=== PATIENT | male | born 1960 | race Caucasian/White ===

== ENCOUNTER 2018-09-25 14:14 | Inpatient (IN) ==
--- NOTE | 2018-09-25 14:46 | XR ---
EXAM DATE: 09/25/2018 2:37 PM EST AGE/SEX: 54 years / Male INDICATIONS: . Shortness of breath. CLINICAL DATA: This is the patient's initial encounter. Patient reports that signs and symptoms have been present for 3 months and indicates a pain score of 0/10. MEDICAL/SURGICAL HISTORY: Chronic obstructive pulmonary disease. None. COMPARISON: No prior exams available for comparison. FINDINGS: AP and lateral views of the chest demonstrate the lungs to be symmetrically aerated without evidence of mass, infiltrate infiltrate or effusion. There is mild streaky interstitial opacities. The cardiom ediastinal contours are unremarkable. Osseous structures are intact. CONCLUSION: 1. No acute cardiopulmonary disease. 2. Mild streaky interstitial opacities which may represent chronic scarring. Electronically signed by: Abad Garcia MD Board Certified Radiologist 09/25/2018 2:45 PM EST
[2018-09-25] MEDS ORDERED: MethylPREDNISolone Sod Succinate Inj 125 MG/2 ML Vial IV.PUSH ONE (14:58)
[2018-09-25 15:31] LABS: Baso # (Auto) 0.1 th/mm3 (0.0-0.2); Baso % (Auto) 0.7 % (0.0-2.0); Eos # (Auto) 1.3 th/mm3 (0.0-0.4); Eos % (Auto) 14.9 % (0.0-4.0); Hematocrit 36.6 % (39.0-51.0); Hemoglobin 12.5 gm/dL (13.0-17.0); Lymph # (Auto) 1.2 th/mm3 (1.0-4.8); Lymph % (Auto) 13.6 % (9.0-44.0); Mean Corpuscular Hemoglobin 30.1 pg (27.0-34.0); Mean Corpuscular Volume 88.7 fL (80.0-100.0); Mean Platelet Volume 7.1 fL (7.0-11.0); Mono # (Auto) 0.7 th/mm3 (0.0-0.9); Mono % (Auto) 8.4 % (0.0-8.0); Neut # (Auto) 5.4 th/mm3 (1.8-7.7); Neut % (Auto) 62.4 % (16.0-70.0); Platelet Count 333 th/mm3 (150-450); Red Blood Count 4.13 mil/mm3 (4.50-5.90); Red Cell Distribution Width 13.4 % (11.6-17.2); White Blood Count 8.6 th/mm3 (4.0-11.0)
[2018-09-25 15:32] LABS: Activated Partial Thrombo Time 37.2 sec (23.4-31.7); Prothrombin Time 10.4 sec (9.8-11.6)
[2018-09-25 15:37] LABS: D-Dimer 0.6 mg/L FEU (0.00-0.50)
--- NOTE | 2018-09-25 15:39 | ED ---
HPI General Chief Complaint: Respiratory Symptoms Stated Complaint: Respiratory Time Seen by Provider: 09/25/18 14:48 Source: patient Mode of arrival: ambulatory Limitations: no limitations History of Present Illness The patient is a 54-year-old male who presents to the emergency department for shortness of breath. The patient has a history of COPD and was being treated by his physician in [place], [place]. The patient states that he was admitted to the hospital in June for pneumonia, shortness of breath, bacteria in the blood, and hypoxia. The patient states he was treated with antibiotics, steroids, breathing treatments, and his symptoms significantly improved. However, the patient's symptoms returned and he was seen by his primary physician who treated him with Tamiflu. The patient states his symptoms once again improved, however, have been progressing over the last month. 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 The patient notes increasing shortness of breath since Saturday with a mostly dry nonproductive cough. The patient has been using his inhalers as directed, denies any known history of pulmonary embolism, DVT, or congestive heart failure. The patient does have a history of COPD and hyperlipidemia. The patient quit smoking 3 months ago. Symptoms are moderate to severe and progressive. The patient is not on home O2. MD Complaint: Reports shortness of breath Onset (ago): day(s) Context: Reports recent illness Severity: severe Consistency/Duration: constant Relieving factors: nothing Exacerbating factors: exertion, coughing and talking Known history of: Reports COPD Associated symptoms: Reports cough Treatment prior to arrival: Reports bronchodilator Related Data Home oxygen amount: none Home Medications Medication Instructions Recorded Confirmed albuterol sulfate [Ventolin HFA] 2 puff INHALATION Q4-6H PRN 09/25/18 09/25/18 azithromycin 250 mg PO DAILY 09/25/18 09/25/18 mometasone-formoterol [Dulera] 2 puff INHALATION Q12H 09/25/18 09/25/18 montelukast [Singulair] 10 mg PO QPM 09/25/18 09/25/18 pravastatin 40 mg PO DAILY 09/25/18 09/25/18 Allergies Allergy/AdvReac Type Severity Reaction Status Date / Time No Known Allergies Allergy Verified 09/25/18 14:18 Review of Systems ROS: all other systems reviewed are negative [facility] Medical History Medical History COPD (chronic obstructive pulmonary disease) (Acute) Surgical History Surgical History History of shoulder surgery (Acute) Social History Social History Substance History: No History of Abuse Second Hand Smoke Exposure: No Smoking Status: Former smoker How Often Do You Have a Drink Containing Alcohol: Monthly or less Recent Travel in [facility] within the Last 8 Weeks: No Recent Out of Country Travel within the Last 8 Weeks: No Immunization History Tetanus Immunization: <5 Years Exam Narrative Exam Narrative: GENERAL: Awake, alert, pleasant 54-year-old male appears his stated age and is in mild to moderate respiratory distress. Patient is only able to speak in 2-3 word sentences. SKIN: Focused skin assessment warm/dry. HEAD: Atraumatic. Normocephalic. EYES: Pupils equal and round. No scleral icterus. No injection or drainage. ENT: No nasal bleeding or discharge. Mucous membranes pink and moist. NECK: Trachea midline. No JVD. CARDIOVASCULAR: Regular, tachycardic with a heart rate in the 120s. RESPIRATORY: Tachypnea with a respiratory rate of 28. Prolonged expiratory phase with faint wheeze, mild accessory muscle use of the supraclavicular's. GASTROINTESTINAL: Abdomen soft, non-tender, nondistended. MUSCULOSKELETAL: No obvious deformities. No clubbing. No cyanosis. No edema. NEUROLOGICAL: Awake and alert. No obvious cranial nerve deficits. Motor grossly within normal limits. Normal speech. PSYCHIATRIC: Appropriate mood and affect; insight and judgment normal. Course Initial Documented Vital Signs Temperature 99.5 F 09/25/18 14:15 Pulse Rate 135 H 09/25/18 14:15 Respiratory Rate 17 09/25/18 14:15 Blood Pressure 166/75 H 09/25/18 14:15 Pulse Oximetry 89 L 09/25/18 14:15 Last Documented Vital Signs Temperature 99.5 F 09/25/18 14:15 Pulse Rate 102 H 09/25/18 20:09 Respiratory Rate 18 09/25/18 20:08 Blood Pressure 134/96 H 09/25/18 20:08 Pulse Oximetry 96 09/25/18 20:08 Medical Decision Making MDM Narrative Medical decision making narrative: IV was established, labs are drawn and sent, and the patient was placed on cardiac telemetry monitoring and continuous pulse oximetry monitoring. The patient was administered Solu-Medrol 125 mg intravenously and duo nebs x3. The patient's chest x-ray is unremarkable, he has tachycardia, hypoxia, and recent travel, therefore, cannot be ruled out with PERC. Therefore, d-dimer was sent to lab. D-dimer came positive so CTA was ordered by me. CTA was negative for PE but patient still somewhat hypoxic and has to be on oxygen to keep him on 94. The patient continued to be hypoxic with elevated respiratory rate and increased work of breathing, therefore, will be admitted.. Patient was given 3 more breathing treatments. Patient reluctantly agreed to stay. Case discussed with Dr. Cardoza who agrees admission to her service. Medical Screen Exam Complete: Yes Emergency Medical Condition: Yes Differential Diagnosis Differential Diagnosis: Differential diagnosis includes COPD exacerbation, pneumonia, bronchitis, pulmonary embolism, cardiomyopathy, pulmonary edema, congestive heart failure, hypoxia, pleural effusion. Medical Records Medical records reviewed: Yes I reviewed the patient's medical records. Lab Data Lab results reviewed: Yes I reviewed the patient's lab results. Result diagrams: 09/25/18 15:05 09/25/18 15:05 Lab Results 09/25/18 09/25/18 09/25/18 Range/Units 15:05 15:05 15:05 WBC 8.6 (4.0-11.0) th/mm3 RBC 4.13 L (4.50-5.90) mil/mm3 Hgb 12.5 L (13.0-17.0) gm/dL Hct 36.6 L (39.0-51.0) % MCV 88.7 (80.0-100.0) fL MCH 30.1 (27.0-34.0) pg MCHC 34.0 (32.0-36.0) % RDW 13.4 (11.6-17.2) % Plt Count 333 (150-450) th/mm3 MPV 7.1 (7.0-11.0) fL Neut % (Auto) 62.4 (16.0-70.0) % Lymph % (Auto) 13.6 (9.0-44.0) % Hemphill % (Auto) 8.4 H (0.0-8.0) % Eos % (Auto) 14.9 H (0.0-4.0) % Baso % (Auto) 0.7 (0.0-2.0) % Neut # (Auto) 5.4 (1.8-7.7) th/mm3 Lymph # (Auto) 1.2 (1.0-4.8) th/mm3 Hemphill # (Auto) 0.7 (0.0-0.9) th/mm3 Eos # (Auto) 1.3 H (0.0-0.4) th/mm3 Baso # (Auto) 0.1 (0.0-0.2) th/mm3 WBC Differential . Differential Comment Auto diff final PT 10.4 (9.8-11.6) sec INR 1.0 Ratio APTT 37.2 H (23.4-31.7) sec D-Dimer Quant (PE/DVT) 0.60 H (0.00-0.50) mg/L FEU Sodium 137 (136-145) meq/L Potassium 3.5 (3.5-5.1) meq/L Chloride 101 (98-107) meq/L Carbon Dioxide 28.3 (21.0-32.0) meq/L Anion Gap 8 (5-15) meq/L BUN 12 (7-18) mg/dL Creatinine 0.93 (0.60-1.30) mg/dL Estimated GFR 85 L (>89) mL/min Random Glucose 129 H (74-106) mg/dL Lactic Acid (0.4-2.0) mmol/L Calcium 8.9 (8.5-10.1) mg/dL Total Bilirubin 0.3 (0.2-1.0) mg/dL AST 25 (15-37) U/L ALT 43 (12-78) U/L Alkaline Phosphatase 50 (45-117) U/L Troponin I Less than 0.02 L (0.02-0.05) ng/mL B-Natriuretic Peptide (0-100) pg/mL Total Protein 7.3 (6.4-8.2) g/dL Albumin 3.1 L (3.4-5.0) g/dL 02/28/19 02/28/19 Range/Units 15:05 15:05 WBC (4.0-11.0) th/mm3 RBC (4.50-5.90) mil/mm3 Hgb (13.0-17.0) gm/dL Hct (39.0-51.0) % MCV (80.0-100.0) fL MCH (27.0-34.0) pg MCHC (32.0-36.0) % RDW (11.6-17.2) % Plt Count (150-450) th/mm3 MPV (7.0-11.0) fL Neut % (Auto) (16.0-70.0) % Lymph % (Auto) (9.0-44.0) % Hemphill % (Auto) (0.0-8.0) % Eos % (Auto) (0.0-4.0) % Baso % (Auto) (0.0-2.0) % Neut # (Auto) (1.8-7.7) th/mm3 Lymph # (Auto) (1.0-4.8) th/mm3 Hemphill # (Auto) (0.0-0.9) th/mm3 Eos # (Auto) (0.0-0.4) th/mm3 Baso # (Auto) (0.0-0.2) th/mm3 WBC Differential Differential Comment PT (9.8-11.6) sec INR Ratio APTT (23.4-31.7) sec D-Dimer Quant (PE/DVT) (0.00-0.50) mg/L FEU Sodium (136-145) meq/L Potassium (3.5-5.1) meq/L Chloride (98-107) meq/L Carbon Dioxide (21.0-32.0) meq/L Anion Gap (5-15) meq/L BUN (7-18) mg/dL Creatinine (0.60-1.30) mg/dL Estimated GFR (>89) mL/min Random Glucose (74-106) mg/dL Lactic Acid 1.2 (0.4-2.0) mmol/L Calcium (8.5-10.1) mg/dL Total Bilirubin (0.2-1.0) mg/dL AST (15-37) U/L ALT (12-78) U/L Alkaline Phosphatase (45-117) U/L Troponin I (0.02-0.05) ng/mL B-Natriuretic Peptide 20 (0-100) pg/mL Total Protein (6.4-8.2) g/dL Albumin (3.4-5.0) g/dL Imaging Data Attestation: I personally reviewed and interpreted this imaging study as follows : Radiologist's impression: Chest X-Ray 09/25/18 00:00 CONCLUSION: 1. No acute cardiopulmonary disease. 2. Mild streaky interstitial opacities which may represent chronic scarring. Chest CTA 09/25/18 15:41 CONCLUSION: 1. No pulmonary interval is identified. 2. Diffuse interstitial disease. 3. Emphysematous change. ECG Data EKG Prior to Arrival: No Attestation: I personally reviewed and interpreted this ECG as follows: Interpretation: EKG reveals sinus tachycardia with a heart rate of 130. QTc 363 ms. Discharge Plan Discharge Disposition Patient Disposition: ED Admit(ED Internal Use Only) Discharge Order Discharge Orders: ED Use Only Admit Order (Routine); Ordered 09/25/18 Ordered By: Santos Cornelius Discharge Details Diagnosis: Acute exacerbation of COPD with asthma, Hypoxia Physicians Team ED Provider: José Murillo ED Midlevel Provider: Santos Cornelius Primary Care Provider: Primary Care Shanika Boateng Attending Provider: Cheryle Cardoza Status ED Status: Left Department Discharge Information Discharge Date/Time: 09/25/18 21:25
[2018-09-25 15:53] LABS: Alanine Aminotransferase 43 U/L (12-78); Albumin 3.1 g/dL (3.4-5.0); Anion Gap 8 meq/L (5-15); Aspartate Aminotransferase 25 U/L (15-37); Blood Urea Nitrogen 12 mg/dL (7-18); Calcium 8.9 mg/dL (8.5-10.1); Carbon Dioxide 28.3 meq/L (21.0-32.0); Chloride 101 meq/L (98-107); Glomerular Filtration Rate 85 mL/min (>89); Glucose,Random 129 mg/dL (74-106); Potassium 3.5 meq/L (3.5-5.1); Sodium 137 meq/L (136-145)
[2018-09-25 15:57] LABS: Alkaline Phosphatase 50 U/L (45-117); Total Protein 7.3 g/dL (6.4-8.2)
--- NOTE | 2018-09-25 16:52 | ECG ---
Date Performed: 09/25/2018 Time Performed: 14:25:41 PTAGE: 54 years EKG: SINUS TACHYCARDIA ABNORMAL RHYTHM ECG NO PREVIOUS TRACING DOCTOR: Marky Aviles Interpretating Date/Time 09/25/2018 16:50:33
--- NOTE | 2018-09-25 18:28 | CT ---
EXAM DATE: 09/25/2018 6:19 PM EST AGE/SEX: 54 years / Male INDICATIONS: Shortness of breath with elevated D-Dimer. CLINICAL DATA: This is the patient's initial encounter. Patient reports that signs and symptoms have been present for 1 day and indicates a pain score of 0/10. MEDICAL/SURGICAL HISTORY: Chronic obstructive pulmonary disease. None. RADIATION DOSE: 23.10 CTDI (mGy) COMPARISON: No prior exams available for comparison. TECHNIQUE: Volumetric scanning was performed using a multi-row detector CT scanner during bolus infu rozina of 70 ml Omnipaque 350 (iohexol) nonionic water-soluble contrast as a single exam dose. The meri a was post processed with a variety of visualization algorithms including full volume maximum intensi ty projection and sliding thin slab reformation. Using automated exposure control and adjustment of t he mA and/or kV according to patient size, radiation dose was kept as low as reasonably achievable to obtain optimal diagnostic quality images. DICOM format image data is available electronically for r eview and comparison. FINDINGS: Pulmonary Arteries: There is suboptimal opacification of the pulmonary arterial system. The pulmonar y and systemic arteries are similarly opacified. No filling defects are seen in the pulmonary arterie s out to the subsegmental vessels. The left and right pulmonary arteries are normal in diameter. Lung: There is diffuse interstitial disease seen throughout the lungs. There is an absent is change seen in the upper lungs. There is vague density seen at the posterior lung bases likely related to at electasis. Effusion: None. Mediastinum: No evidence of mediastinal or hilar adenopathy. Other: The axilla is unremarkable. CONCLUSION: 1. No pulmonary interval is identified. 2. Diffuse interstitial disease. 3. Emphysematous change. Electronically signed by: Phillip Cuellar MD Board Certified Radiologist 09/25/2018 6:27 PM EST
[2018-09-25] MEDS ORDERED: Azithromycin Inj 500 MG in Sodium Chlor 0.9% Inj 250 ML IV.SIG ONE (19:13)
[2018-09-25] MEDS ORDERED: Bisacodyl 10 MG Supp RECTAL PRN (19:20)
--- NOTE | 2018-09-25 19:21 | P.HPIM ---
History of Present Illness Primary Care Physician: No Primary Care Physician History of Present Illness: This is a 57-year-old male with a PMH of COPD who presented to ER with complaints of SOB and wheezing x3 days w/ associated nonproductive cough. No fever, chills or chest pain. States moved here from [place] few months ago, last seen in [place] in Jun for COPD exacerbation and PNA , s/p antibiotics and steroid treatment, has been doing well since until now. Using MDI w/ no improvement. On arrival, BP 166/75, HR 135, O2 sat 89% on RA, Temp 99.5. CBC essentially unremarkable. INR 1.0. D-dimer 0.6. Chemistry unremarkable except for GFR 85. Troponin negative. CXR with no acute findings. CTA Chest negative for PE, COPD. Diagnosis (1) COPD (chronic obstructive pulmonary disease): (2) Hypoxia: (3) HTN (hypertension): Inpatient Certification Inpatient Certification: I certify that the inpatient services were ordered in accordance with Medicare regulations governing the order. This includes certification that hospital inpatient services are reasonable and necessary and in the case of services not specified as inpatient-only under 42 CFR 419.22(n), that they are appropriately provided as inpatient services in accordance to with the 2-midnight benchmark under 43 CFR 412.3(e) Estimated Total Length of Stay (Days): 2 Plans for Post Hospital Care: Not yet determined Review of Systems PAST FAMILY HISTORY: Reviewed. No h/o DM or CAD Review of Systems: all other systems reviewed are negative [facility] Medical History Medical History COPD (chronic obstructive pulmonary disease) (Acute) Surgical History Surgical History History of shoulder surgery (Acute) Social History Social History Substance History: No History of Abuse Smoking Status: Former smoker How Often Do You Have a Drink Containing Alcohol: 2 to 4 times a month Recent Travel in [facility] within the Last 8 Weeks: No Recent Out of Country Travel within the Last 8 Weeks: No Immunization History Tetanus Immunization: <5 Years Medications and Allergies Allergies Allergy/AdvReac Type Severity Reaction Status Date / Time No Known Allergies Allergy Verified 09/25/18 14:18 Home Medications Medication Instructions Recorded Confirmed Type albuterol sulfate [Ventolin HFA] 2 puff INHALATION Q4-6H PRN 09/25/18 09/25/18 History azithromycin 250 mg PO DAILY 09/25/18 09/25/18 History mometasone-formoterol [Dulera] 2 puff INHALATION Q12H 09/25/18 09/25/18 History montelukast [Singulair] 10 mg PO QPM 09/25/18 09/25/18 History pravastatin 40 mg PO DAILY 09/25/18 09/25/18 History Active Medications: Active Medications Albuterol (Duoneb Neb (Janet)) 1 ampul NEB Q15M JANET Stop: 09/25/18 19:46 Azithromycin 500 mg/ Sodium (Chloride) 250 mls @ 250 mls/hr IV.SIG ONCE ONE Stop: 09/25/18 20:12 Nicotine (Habitrol 14 Mg Patch.24 Hr) 1 patch T-DERMAL DAILY JANET Physical Exam Vital signs: Vital Signs 09/25/18 14:15 09/25/18 14:57 09/25/18 15:18 Temperature 99.5 F Pulse Rate 135 H 125 H 121 H Respiratory Rate 17 28 H Blood Pressure 166/75 H 164/93 H Pulse Oximetry 89 L 98 09/25/18 15:27 09/25/18 15:40 09/25/18 15:55 Temperature Pulse Rate 120 H 118 H 115 H Respiratory Rate 27 H 25 H 25 H Blood Pressure Pulse Oximetry 09/25/18 18:02 Temperature Pulse Rate 104 H Respiratory Rate 16 Blood Pressure 145/77 H Pulse Oximetry 94 L Intake & Output 09/25/18 09/25/18 09/26/18 06:59 18:59 06:59 Weight 90.718 kg Narrative: PE: GENERAL: Middle-aged white male in no acute distress, +dyspnea w/ speech, increased work of breathing. SKIN: Focused skin assessment warm and dry. HEENT: PERRLA, EOMI. No scleral icterus or conjunctival pallor. No lid lag or facial droop. CARDIOVASCULAR: Regular rate and rhythm. No obvious murmurs to auscultation. No chest tenderness to palpation. RESPIRATORY: Occasional rhonchi and expiratory wheezes. Breath sounds equal bilaterally. GASTROINTESTINAL: Abdomen soft, non-tender, nondistended. BS normal. MUSCULOSKELETAL: Extremities without clubbing, cyanosis, or edema. No obvious deformities. NEUROLOGICAL: Awake, alert and oriented x4. No focal neurologic deficits. Moving both upper and lower extremities spontaneously. PSYCHIATRIC: Appropriate mood and affect. Insight and judgment normal. Results Labs CBC & Chem 7: 09/25/18 15:05 09/25/18 15:05 Imaging Impressions Chest X-Ray 09/25/18 00:00 CONCLUSION: 1. No acute cardiopulmonary disease. 2. Mild streaky interstitial opacities which may represent chronic scarring. Chest CTA 09/25/18 15:41 CONCLUSION: 1. No pulmonary interval is identified. 2. Diffuse interstitial disease. 3. Emphysematous change. Caprini VTE Risk Assessment Caprini VTE Risk Assessment: No/Low Risk (score <= 1) Caprini Risk Assessment Model: Point Value = 1 Point Value = 2 Point Value = 3 Point Value = 5 Age 41-60 Minor surgery BMI > 25 kg/m2 Swollen legs Varicose veins or History of unexplained or recurrent spontaneous Oral contraceptives or hormone replacement Sepsis (< 1 month) Serious lung disease, including pneumonia (< 1 month) Abnormal pulmonary function Acute myocardial infarction Congestive heart failure (< 1 month) History of inflammatory bowel disease Medical patient at bed rest Age 61-74 Arthroscopic surgery Major open surgery (> 45 min) Laparoscopic surgery (> 45 min) Malignancy Confined to bed (> 72 hours) Immobilizing plaster cast Central venous access Age >= 75 History of VTE Family history of VTE Factor V Leiden Prothrombin [id number] Lupus anticoagulant Anticardiolipin antibodies Elevated serum homocysteine Heparin-induced thrombocytopenia Other congenital or acquired thrombophilia Stroke (< 1 month) Elective arthroplasty Hip, pelvis, or leg fracture Acute spinal cord injury (< 1 month) Prophylaxis Regimen: Total Risk Factor Score Risk Level Prophylaxis Regimen 0-1 Low Early ambulation 2 Moderate Order ONE of the following: *Sequential Compression Device (SCD) *Heparin 5000 units SQ BID 3-4 Higher Order ONE of the following medications: *Heparin 5000 units SQ TID *Enoxaparin/Lovenox 40 mg SQ daily (WT < 150 kg, CrCl > 30 mL/min) *Enoxaparin/Lovenox 30 mg SQ daily (WT < 150 kg, CrCl > 10-29 mL/min) *Enoxaparin/Lovenox 30 mg SQ BID (WT < 150 kg, CrCl > 30 mL/min) AND/OR *Sequential Compression Device (SCD) 5 or more Highest Order ONE of the following medications: *Heparin 5000 units SQ TID (Preferred with Epidurals) *Enoxaparin/Lovenox 40 mg SQ daily (WT < 150 kg, CrCl > 30 mL/min) *Enoxaparin/Lovenox 30 mg SQ daily (WT < 150 kg, CrCl > 10-29 mL/min) *Enoxaparin/Lovenox 30 mg SQ BID (WT < 150 kg, CrCl > 30 mL/min) AND *Sequential Compression Device (SCD) Assessment and Plan (1) COPD (chronic obstructive pulmonary disease): Code(s): J44.9 - Chronic obstructive pulmonary disease, unspecified Status: Acute (2) Hypoxia: Code(s): R09.02 - Hypoxemia Status: Acute (3) HTN (hypertension): Code(s): I10 - Essential (primary) hypertension Status: Acute Plan A/P: 1. COPD: Chronic Respiratory Failure w/ Acute Exacerbation. Severe. + dyspnea w/ speech and increased work of breathing despite Solu-Medrol and DuoNebs in ER. Will continue w/ Solu-Medrol, DuoNeb q4h and q2h prn, Symbicort , Mucinex. CTA Negative for PE, however will continue w/ empiric tx of atypical PNA in light of low-grade temp and persistent symptoms. 2. Hypoxia: O2 sat 89% on RA, continue w/ treatment as above, monitor O2, check ambulating O2 prior to d/c to eval for home O2 needs. 3. HTN: Uncontrolled, likely secondary to above, monitor BP, antihypertensives as needed for BP >180 4. DVT Prophylaxis: SCD/Teds 5. Social work for d/c planning as needed. 6. Case discussed w/ ER physician at length, labs/records/imaging reviewed by me
[2018-09-25] MEDS: MethylPREDNISolone Sod Succinate Inj 40 MG/ML Vial IV.PUSH SCH (20:02)
[2018-09-25] MEDS: guaiFENesin 600 MG ER Tablet PO SCH (22:27)
[2018-09-25] MEDS: Budesonide-Formoterol 160/4.5 MCG 6 GM Inhaler INH SCH (22:27)
[2018-09-25] MEDS: Senna/Docusate Sodium 8.6/50 MG Tablet PO SCH (22:27)
[2018-09-26] MEDS: Acetaminophen 325 MG Tablet PO PRN ×2 (00:28→17:10)
[2018-09-26] MEDS: MethylPREDNISolone Sod Succinate Inj 40 MG/ML Vial IV.PUSH SCH ×4 (02:07→20:29)
[2018-09-26 07:26] LABS: Baso % (Auto) 0.1 % (0.0-2.0); Eos % (Auto) 0.2 % (0.0-4.0); Hematocrit 35.8 % (39.0-51.0); Hemoglobin 12.2 gm/dL (13.0-17.0); Lymph # (Auto) 0.7 th/mm3 (1.0-4.8); Lymph % (Auto) 15.1 % (9.0-44.0); Mean Corpuscular Hemoglobin 29.8 pg (27.0-34.0); Mean Corpuscular Volume 87.9 fL (80.0-100.0); Mono # (Auto) 0.1 th/mm3 (0.0-0.9); Mono % (Auto) 2.3 % (0.0-8.0); Neut # (Auto) 3.6 th/mm3 (1.8-7.7); Neut % (Auto) 82.3 % (16.0-70.0); Platelet Count 349 th/mm3 (150-450); Red Blood Count 4.08 mil/mm3 (4.50-5.90); Red Cell Distribution Width 13.2 % (11.6-17.2); White Blood Count 4.4 th/mm3 (4.0-11.0)
[2018-09-26 07:51] LABS: Albumin 3.1 g/dL (3.4-5.0); Anion Gap 10 meq/L (5-15); Aspartate Aminotransferase 16 U/L (15-37); Blood Urea Nitrogen 13 mg/dL (7-18); Calcium 9.3 mg/dL (8.5-10.1); Carbon Dioxide 27.9 meq/L (21.0-32.0); Chloride 101 meq/L (98-107); Glomerular Filtration Rate Greater Than 89 mL/min (>89); Glucose,Random 184 mg/dL (74-106); Potassium 3.8 meq/L (3.5-5.1); Sodium 139 meq/L (136-145)
[2018-09-26 07:52] LABS: Alanine Aminotransferase 47 U/L (12-78)
[2018-09-26 07:54] LABS: Alkaline Phosphatase 56 U/L (45-117); Total Protein 7.7 g/dL (6.4-8.2)
[2018-09-26] MEDS: guaiFENesin 600 MG ER Tablet PO SCH ×2 (08:25→20:30)
[2018-09-26] MEDS: Senna/Docusate Sodium 8.6/50 MG Tablet PO SCH ×2 (08:25→20:29)
[2018-09-26] MEDS: Budesonide-Formoterol 160/4.5 MCG 6 GM Inhaler INH SCH ×2 (09:32→20:30)
--- NOTE | 2018-09-26 15:56 | P.PNIM ---
Subjective Interval history: Patient says he is feeling a little better than yesterday. Still short of breath with walking. Denies any chest pain. Says he does not feel comfortable going home at this time. Physical Exam Vital signs: Vital Signs 09/25/18 15:55 09/25/18 18:02 09/25/18 19:42 Temperature Pulse Rate 115 H 104 H 94 H Respiratory Rate 25 H 16 20 Blood Pressure 145/77 H Pulse Oximetry 94 L 09/25/18 19:43 09/25/18 20:08 09/25/18 20:09 Temperature Pulse Rate 94 H 102 H 102 H Respiratory Rate 20 18 Blood Pressure 134/96 H Pulse Oximetry 96 09/25/18 22:55 09/26/18 00:00 09/26/18 04:00 Temperature 97.9 F 98.9 F Pulse Rate 78 102 H 98 H Respiratory Rate 17 16 16 Blood Pressure 134/88 146/84 H Pulse Oximetry 96 91 L 09/26/18 08:00 09/26/18 08:08 09/26/18 11:30 Temperature 98 F 98.6 F Pulse Rate 104 H 102 H 110 H Respiratory Rate 18 15 18 Blood Pressure 134/85 142/87 H Pulse Oximetry 95 94 L 95 09/26/18 11:46 09/26/18 15:16 Temperature Pulse Rate 108 H 108 H Respiratory Rate 15 16 Blood Pressure Pulse Oximetry Intake & Output 09/25/18 09/26/18 09/26/18 18:59 06:59 18:59 Intake Total 750 / 750 Balance 750 / 750 Weight 90.718 kg 92.9 kg Intake: IV 250 / 250 Azithromycin Inj 500 MG In NS 250 / 250 Inj 250 ML @ 250 mls/hr IV.SIG ONCE ONE Rx#:[id number] Oral 500 / 500 Other: # Voids 2 Weight On Admission 92.9 kg Narrative: GENERAL: Patient sitting up in bed. Appears short of breath with talking. SKIN: Warm and dry. HEAD: Normocephalic. EYES: No scleral icterus. No injection or drainage. NECK: Supple, trachea midline. No JVD. CARDIOVASCULAR: Regular rate and rhythm without murmurs, gallops, or rubs. RESPIRATORY: Breath sounds with expiratory wheezing bilaterally.. No accessory muscle use. GASTROINTESTINAL: Abdomen soft, non-tender, nondistended. MUSCULOSKELETAL: No cyanosis, or edema. BACK: Nontender without obvious deformity. No CVA tenderness. Results Labs CBC & Chem 7: 09/26/18 06:24 09/26/18 06:24 Labs: Microbiology 09/25/18 15:05 Nasal Wash Influenza Types A,B Antigen - Final Negative for FLU A and B antigen Infection due to influenza A or B cannot be ruled out since the antigen present in the sample may be below the detection limit of the test. Imaging Imaging: Impressions Chest CTA 09/25/18 15:41 CONCLUSION: 1. No pulmonary interval is identified. 2. Diffuse interstitial disease. 3. Emphysematous change. Assessment and Plan (1) COPD (chronic obstructive pulmonary disease): Code(s): J44.9 - Chronic obstructive pulmonary disease, unspecified Status: Acute (2) Hypoxia: Code(s): R09.02 - Hypoxemia Status: Acute (3) HTN (hypertension): Code(s): I10 - Essential (primary) hypertension Status: Acute Plan //COPD: Chronic Respiratory Failure w/ Acute Exacerbation. Severe. +dyspnea w / speech and increased work of breathing despite Solu-Medrol and DuoNebs in ER. Will continue w/ Solu-Medrol, DuoNeb q4h and q2h prn, Symbicort, Mucinex. CTA Negative for PE, however will continue w/ empiric tx of atypical PNA in light of low-grade temp and persistent symptoms. = Improving somewhat, however still short of breath with ambulation. Interstitial lung disease on CT pulmonary angiogram, however negative for PE. Will consult pulmonology. Continue current treatment. //Hypoxia: O2 sat 89% on RA, continue w/ treatment as above, monitor O2, check ambulating O2 prior to d/c to eval for home O2 needs. //HTN: Uncontrolled, likely secondary to above, monitor BP, antihypertensives as needed for BP >180 // DVT Prophylaxis: SCD/Teds Discussed Condition With: Nurse, case briefer. Discharge Planning: Please discharge the next 2 days. Progress Note: Quality VTE Deep Vein Thrombosis/Pulmonary Embolism Present on Admission: No
[2018-09-26] MEDS ORDERED: Montelukast 10 MG Tablet PO SCH (18:00)
--- NOTE | 2018-09-26 19:02 | MB ---
cc: Ramy St MD DATE: 09/26/2018 REQUESTING PHYSICIAN: Cheryle Cardoza MD REASON FOR CONSULTATION: COPD exacerbation. HISTORY OF PRESENT ILLNESS: Mr. Khan is a 57-year-old male from [place], [place]. He follows with Dr. Phillips, lighting technician at [facility]. The patient states that he has COPD and was told that his lung functions are very bad and advised if he does not quit smoking, he will end up with a lung transplant. The patient is trying to move over here. 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 He started having shortness of breath about 4 days ago. Then, he was having chills, low-grade fever, aching all over and flu-like symptoms. He had a CT of the chest done which shows no pulmonary embolism. It shows diffuse interstitial disease with emphysematous changes. PAST MEDICAL HISTORY: Significant for a history of COPD and emphysema, history of hypertension. MEDICATIONS: He is currently takin. Milk of magnesia. 2. Nebulizer treatments with DuoNeb. 3. Zithromax 500 mg a day. 4. Dulcolax suppository. 5. Symbicort twice a day. 6. Solu-Medrol 40 mg q.6 hours. 7. Singulair 10 mg a day. 8. Nicotine patch. 9. Pravastatin 40 mg a day. ALLERGIES: NO KNOWN DRUG ALLERGIES. SOCIAL HISTORY: He has a long history of smoking for 40 years, which he quit 3-4 months ago. He drinks socially. He has history of cocaine use in the past. FAMILY HISTORY: He is . He has 1 daughter who lives in [place]. REVIEW OF SYSTEMS: Normally, he is up, around and active and is working on a concrete truck. Weight is stable. No DVT or pulmonary embolism. No seizure, stroke or epilepsy. PHYSICAL EXAMINATION: GENERAL: A well-built, well-nourished male not in any acute distress. VITAL SIGNS: His blood pressure is 138/69, heart rate 90, respirations 18, temperature 98.1. HEENT: Pupils are equal and reactive to light. Oral mucosa and nasal mucosa are normal. NECK: JVP not raised. CHEST: He has expiratory rhonchi. HEART: S1 and S2 are normal. ABDOMEN: Benign. EXTREMITIES: No edema. IMPRESSION: 1. Chronic obstructive pulmonary disease exacerbation. 2. Interstitial lung disease. 3. Hypertension. 4. History of nicotine use. 5. No pulmonary embolism. PLAN: I discussed with the patient and advised him not to smoke again. Once he gets better, we will check his pulmonary function study. Continue IV Solu-Medrol, aerosol treatments and continue antibiotics. We will give him heparin 5000 units q.12 hours for DVT prophylaxis. He is on a nicotine patch. Further treatment will depend upon the course in the hospital. Thank you, Dr. Cheryle Cardoza, for this consult. MD SANJUANA Devries/malvin , 05:58 PM , 06:06 PM
[2018-09-26] MEDS ORDERED: Azithromycin Inj 500 MG in Sodium Chlor 0.9% Inj 250 ML IV.SIG SCH (20:00)
[2018-09-26] MEDS: Heparin - SQ 10,000 UNITS/ML Vial SQ SCH (20:29)
[2018-09-27] MEDS: MethylPREDNISolone Sod Succinate Inj 40 MG/ML Vial IV.PUSH SCH ×2 (02:31→09:57)
[2018-09-27] MEDS: guaiFENesin 600 MG ER Tablet PO SCH (09:57)
[2018-09-27] MEDS: Budesonide-Formoterol 160/4.5 MCG 6 GM Inhaler INH SCH (10:01)
[2018-09-27] MEDS: Senna/Docusate Sodium 8.6/50 MG Tablet PO SCH (10:01)
[2018-09-27] MEDS: Heparin - SQ 10,000 UNITS/ML Vial SQ SCH (10:01)
[2018-09-27 12:27] VITALS: BP 144/73; PULSE 108; RESP 14; TEMP 97.9; O2SAT 95
== END 2018-09-27 15:22 | disposition home or self-care (01) | DRG 193 ==
LOC: NEPE 14:14 → EDBD 19:16 → NEDA 19:16 → N04 21:25
PROVIDERS: ADMIT Hospitalist; ATTEND Hospitalist
DX: J18.9 Pneumonia, unspecified organism; Z79.51 Long term (current) use of inhaled steroids; I10 Essential (primary) hypertension; J84.9 Interstitial pulmonary disease, unspecified; Z87.891 Personal history of nicotine dependence; J44.0 Chronic obstructive pulmonary disease with (acute) lower respiratory infection; E78.5 Hyperlipidemia, unspecified; J44.1 Chronic obstructive pulmonary disease with (acute) exacerbation; J96.21 Acute and chronic respiratory failure with hypoxia
CPT/HCPCS: 71020; 71046; 71275; 80053; 83520; 83605; 83880; 84484; 85025; 85379; 85610; 85730; 87275; 87276; 87804; 90774; 90784; 93005; 94618; 94620; 94640; 94664; 94665; 96374; 99285; C8952; J0456; J1644; J2920; J2930; J7050; Q9967